=== PATIENT | male | born 1990 | race Caucasian/White ===

== ENCOUNTER 2021-10-10 22:06 | Emergency (ER) | payer OTHER ==
[2021-10-11] MEDS ORDERED: Ketorolac 15 MG/ML SDV IM ONE (00:16)
[2021-10-11] MEDS ORDERED: Ketorolac 30 MG/ML SDV ONE (00:34)
== END 2021-10-11 00:50 | disposition home or self-care (01) ==
LOC: JD.ED 22:06
DX: S93.402A Sprain of unspecified ligament of left ankle, initial encounter (principal); X50.1XXA Overexertion from prolonged static or awkward postures, initial encounter
CPT/HCPCS: 73610-26-LT; 73610-LT; 73630-26-LT; 73630-LT; 96372; 99282; 99283-25

== ENCOUNTER 2024-09-30 07:26 | Day surgery (SDC) | payer BC, MEDICAID ==
[2024-09-30] MEDS ORDERED: Sodium Chloride 0.9% 10 ML Syringe FLUSH SCH (07:30)
[2024-09-30] MEDS: Lactated Ringers 1,000 ML IV SCH (07:50)
[2024-09-30] MEDS ORDERED: propofoL 500 MG/50 ML 50 ML ONE (08:26)
[2024-09-30] MEDS ORDERED: Lidocaine 1% 4 ML ONE (08:28)
[2024-09-30] MEDS: Bupivacaine 0.25% 10 ML SDV ONE (09:16)
[2024-09-30] MEDS ORDERED: fentaNYL 100 MCG/2 ML SDV IVPUSH PRN (09:28)
[2024-09-30] MEDS ORDERED: Ondansetron 4 MG/2 ML SDV IVPUSH PRN (09:28)
[2024-09-30] MEDS: Ketorolac 30 MG/ML SDV IVPUSH ONE (10:44)
[2024-09-30] MEDS: Acetaminophen/HYDROcodone 325-5 MG Tab PO ONE (10:45)
== END 2024-09-30 11:35 | disposition home or self-care (01) ==
LOC: JD.SDS 07:26
PROVIDERS: ATTEND Surgery
DX: D12.8 Benign neoplasm of rectum (principal); K64.5 Perianal venous thrombosis; K57.30 Diverticulosis of large intestine without perforation or abscess without bleeding; F17.290 Nicotine dependence, other tobacco product, uncomplicated; F17.210 Nicotine dependence, cigarettes, uncomplicated
CPT/HCPCS: 45385; 46320; A9270; J0665; J1885; J2003; J2704; J7120; 00902